=== PATIENT | female | born 1980 | race Two or more races ===

== ENCOUNTER 2016-05-14 16:25 | Emergency (ER) | payer MEDICAID ==
[~2016-05-14] VITALS: Ht 175.3 cm; Wt 235.9 kg
[~2016-05-14 16:25] MED LIST: ENAL5TAB85; FURO40TA; LEVO25TA6 PO; METF-316 PO; METO25TA62; POTA8TAB2
[2016-05-14 18:32] LABS: Basophils # (auto) 0 uL; DEFINITIVE VIEW TRANSMISSION; Eosinophils # (auto) 0.3 uL; Hemoglobin 11.2 g/dL (12.2-16.2); Lymphocytes # (auto) 4.5 uL; Lymphocytes % (auto) 28.7 % (10.0-50.0); Mean Corpuscular Hemoglobin 18.8 pg (28.0-32.0); Mean Corpuscular Hgb Conc. 30.2 g/dL (32.0-36.0); Mean Corpuscular Volume 62.3 fL (80.0-100.0); Monocytes # (auto) 0.4 uL; Monocytes % (auto) 2.7 % (0.0-12.0); Neutrophils # (auto) 10.5 uL; Neutrophils % (auto) 66.6 % (37.0-80.0); Platelet Count (auto) 366 10^3/uL (140-450); White Blood Cell 15.7 10^3/uL (4.4-10.8)
[2016-05-14 18:34] LABS: Albumin 3.1 g/dL (3.4-5.0); BUN/Creatinine Ratio 23.2; Bilirubin, Total 0.4 mg/dL (0.2-1.0); Calcium 8.9 mg/dL (8.5-10.1); Potassium 4.2 mmol/L (3.5-5.1); Total Protein 7.6 g/dL (6.4-8.2)
[2016-05-14] MEDS ORDERED: HYDROcodone-ACET 10/325MG TAB PO ONE (19:45)
[2016-05-14 19:48] LABS: Hypochromia Marked; Microcytosis Marked; Platelet Estimate Adequate
[2016-05-14 19:49] LABS: Stomatocytes Few; Tear Drop Cells FEW
[2016-05-14 19:50] LABS: Giant Platelets Few
[2016-05-14 20:54] VITALS: BP 113/7
[2016-05-14] MEDS ORDERED: ONDANSETRON HCL 4 MG/2 ML VIAL IM ONE (21:30)
[2016-05-14] MEDS ORDERED: HYDROmorphone HCL 2 MG/ML VL IM ONE (21:30)
== END 2016-05-14 22:16 | disposition home or self-care (01) ==
LOC: EDUNIT# 16:25 → ER 16:25
DX: R10.9 Unspecified abdominal pain (principal); R07.9 Chest pain, unspecified; Z88.6 Allergy status to analgesic agent; Z79.899 Other long term (current) drug therapy; E11.9 Type 2 diabetes mellitus without complications; I10 Essential (primary) hypertension; J45.909 Unspecified asthma, uncomplicated; E07.9 Disorder of thyroid, unspecified; M10.9 Gout, unspecified
CPT/HCPCS: 36415; 71010; 80053; 82962; 84702; 85025; 96372; 99285; J1170; J2405